=== PATIENT | male | born 1970 | race Two or more races ===

== ENCOUNTER 2024-02-28 10:03 | Emergency (ER) | payer MEDICAID ==
[~2024-02-28] VITALS: Ht 170.2 cm; Wt 86.8 kg
[2024-02-28] MEDS: cloNIDine HCL 0.1 MG TAB PO ONE ×2 (10:37→10:39)
[2024-02-28 10:42] VITALS: PULSE 88
[2024-02-28] MEDS ORDERED: LOSA-533 PO (10:50)
[2024-02-28 11:32] VITALS: BP 136/86; PULSE 86; RESP 16; TEMP 98.5; O2SAT 97
== END 2024-02-28 11:48 | disposition home or self-care (01) ==
LOC: ER 10:03
DX: I16.0 Hypertensive urgency (principal); E11.9 Type 2 diabetes mellitus without complications; Z90.49 Acquired absence of other specified parts of digestive tract

== ENCOUNTER 2024-11-01 17:04 | Emergency (ER) | payer MEDICAID ==
[~2024-11-01] VITALS: Ht 167.6 cm; Wt 72.0 kg
[~2024-11-01 17:04] MED LIST: LOSA-533 PO
[2024-11-01 18:44] VITALS: BP 122/88; PULSE 100; RESP 20; TEMP 98.2; O2SAT 97
[2024-11-01] MEDS ORDERED: PRED20TA2 PO (20:13)
[2024-11-01] MEDS ORDERED: CETITAB29 PO (20:13)
--- NOTE | 2024-11-01 20:14 | ED.PDOC ---
History of Present Illness(SKN HPI Comments 54-year-old male presents to ER with complaints of rash x8 days. Patient reports he has been experiencing a red itchy rash to right leg x8 days. Denies use of medications for current symptoms. Denies any pain. Patient presents to ER ambulatory on arrival, with steady gait, in no distress. Denies fever, body aches, chills, known allergies, use of new soaps/detergents/lotions, skin drainage, nausea/vomiting, shortness of breath or any further symptoms/complaints Chief Complaint: Rash Time Seen by MD: 18:09 Primary Care Provider: UNKNOWN History of Present Illness: Nurses Notes, Medications, Allergies Allergies: Coded Allergies: NO KNOWN ALLERGIES (Unverified , 02/28/24) Home Meds Active Scripts Cetirizine HCl (Eql All Day Allergy) 10 Mg Tab, 10 MG PO DAILY PRN, #24 TAB 0 Refills Prov:DAHLIA SUMMERS 11/01/24 Prednisone (Prednisone) 20 Mg Tab, 20 MG PO BID for 5 Days, #10 TAB 0 Refills Prov:DAHLIA SUMMERS 11/01/24 Losartan Potassium (Losartan Potassium) 25 Mg Tab, 1 TAB PO DAILY, #30 TAB 5 Refills Prov:OLGA FOLEY MD 02/28/24 Information Source: Patient Mode of Arrival: Ambulatory Past Medical History PAST MEDICAL HISTORY: DM, HTN, [place] (2022) Surgical History: CABG (2022), Cholecystectomy Family History Family History: Unknown Social History Smoker: Non-Smoker Alcohol: Denies ETOH Use Drugs: Denies Drug Use Lives In: Home Constitutional: denies: chills, diaphoresis, fatigue, fever, malaise, sweats, weakness, others EENTM: denies: blurred vision, double vision, ear bleeding, ear discharge, ear drainage, ear pain, ear ringing, eye pain, eye redness, hearing loss, mouth pain, mouth swelling, nasal discharge, nose bleeding, nose congestion, nose pain, photophobia, tearing, throat pain, throat swelling, voice changes, others Respiratory: denies: cough, hemoptysis, orthopnea, SOB at rest, shortness of breath, SOB with excertion, stridor, wheezing, others Cardiovascular: denies: chest pain, dizzy spells, diaphoresis, Dyspnea on exertion, edema, irregular heart beat, left arm pain, lightheadedness, palpitations, PND, syncope, others Gastrointestinal: denies: abdomen distended, abdominal pain, blood streaked bowels, constipated, diarrhea, dysphagia, difficulty swallowing, hematemesis, melena, nausea, poor appetite, poor fluid intake, rectal bleeding, rectal pain, vomiting, others Genitourinary: denies: burning, dysuria, flank pain, frequency, hematuria, incontinence, penile discharge, penile sore, pain, testicle pain, testicle swelling, urgency, others Neurological: denies: dizziness, fainting, headache, left sided numbness, left sided weakness, numbness, paresthesia, pre-existing deficit, right sided numbness, right sided weakness, seizure, speech problems, tingling, tremors, weakness, others Musculoskeletal: denies: back pain, gout, joint pain, joint swelling, muscle pain, muscle stiffness, neck pain, others Integumetry: reports: others (As stated in HPI) Allergic/Immunocompromised: reports: others ( STATED IN HPI) Hematologic/Lymphatic: denies: anemia, blood clots, easy bleeding, easy bruising, swollen glands, others Endocrine: denies: excessive hunger, excessive sweating, excessive thirst, excessive urination, flushing, intolerance to cold, intolerance to heat, unexplained weight gain, unexplained weight loss, others Psychiatric: denies: anxiety, bipolar disorder, depression, hopeless, panic disorder, schizophrenia, sleepless, suicidal, others Physical Exam General Appearance: No Apparent Distress HEENT: PERRL/EOMI, Pharynx Normal Neck: Full Range of Motion, Non-Tender, Normal Respiratory: Chest Non-Tender, Lungs Clear, No Accessory Muscle Use, No Respiratory Distress, Normal Breath Sounds Cardiovascular: No Murmur, No Gallop, Regular Rate/Rhythm Breast Exam: Deferred Gastrointestinal: NOT DONE Genitalia: Deferred Pelvic: Deferred Rectal: Deferred Extremities: Normal capillary refill, Normal range of motion Neurologic: Alert, comfort station supervisor II-XII nml as Tested, No Motor Deficits, Normal Affect, Normal Mood, No Sensory Deficits Cerebellar Function: Normal Reflexes: Normal Skin: Dry, Warm, Other (MILD URTICARIA NOTED TO RIGHT UPPER LEG AND RIGHT BUTTOCK. NO DRAINAGE/RED STREAKING/PUSTULES/FLUCTUANCE NOTED) Peripheral Pulses: 2+ femoral (R), 2+ femoral (L), 2+ dorsalis pedis (R), 2+ dorsalis pedis (L), 2+ Radial (R), 2+ Radial (L), 2+ Brachial (R), 2+ Brachial (L) Lymphatic: No Adenopathy Was a procedure done? Was a procedure done?: No Sedation Sedation?: No Differential Diagnosis (INTG) Differential Diagnosis: Abrasion, Cellulitis Differential Diagnosis: Abscess X-Ray, Labs, Meds, VS Vital Signs Date Time Temp Pulse Resp B/P (MAP) Pulse Ox O2 Delivery O2 Flow Rate FiO2 11/01/24 18:44 100 20 97 Room Air 11/01/24 18:44 98.2 100 20 122/88 (99) 97 98.2 11/01/24 17:28 98.2 100 20 122/88 (99) 97 BENADRYL 25 MG IM ORDERED SOLU-MEDROL 125 MG IM ORDERED ADVISED TO FOLLOW UP WITH PCP IN 1-2 DAYS PATIENT VERBALIZED UNDERSTANDING AND AGREEABLE WITH CURRENT PLAN OF CARE ADVISED TO RETURN TO ER IMMEDIATELY IF SYMPTOMS WORSEN Time of 1ST Reevaluation: 19:54 Reevaluation 1ST: N/A Patient Education/Counseling: Diagnosis, Treatment, Prognosis, Need For Follow Up Family Education/Counseling: No Family Present Departure 1 Departure Time of Disposition: 20:12 Impression: Primary Impression: Allergic reaction Qualified Codes: T78.40XA - Allergy, unspecified, initial encounter Disposition: HOME / SELF CARE / HOMELESS Condition: Stable e-Prescriptions Prednisone (Prednisone) 20 Mg Tab 10 MG PO BID for 5 Days, #5 TAB 0 Refills Prov: DAHLIA SUMMERS 11/01/24 Cetirizine HCl (Eql All Day Allergy) 10 Mg Tab 10 MG PO DAILY PRN, #24 TAB 0 Refills Prov: DAHLIA SUMMERS 11/01/24 Discharged With: Friend Critical Care Note Critical Care Time?: No Stability Stability form required: No Heart Score Heart Score: Heart Score Response (Comments) Value History N/A 0 EKG N/A 0 Age N/A 0 Risk Factors N/A 0 Troponin N/A 0 Total 0 DAHLIA SUMMERS Nov 01, 2024 20:14
[2024-11-01] MEDS: methylPREDNISolone SOD SUCC 125 MG/2 ML VL IM ONE (20:15)
[2024-11-01] MEDS: diphenhdrAMINE HCL 50 MG/1 ML VL IM ONE (20:15)
== END 2024-11-01 21:04 | disposition home or self-care (01) ==
LOC: ER 17:04
DX: T78.40XA Allergy, unspecified, initial encounter (principal); E11.9 Type 2 diabetes mellitus without complications; I10 Essential (primary) hypertension; I25.2 Old myocardial infarction; Z95.1 Presence of aortocoronary bypass graft; Z90.49 Acquired absence of other specified parts of digestive tract; X58.XXXA Exposure to other specified factors, initial encounter
CPT/HCPCS: 96372; 99284; J1200; J2919